=== PATIENT | male | born 1985 | race Caucasian/White ===

== ENCOUNTER 2021-04-21 07:46 | Emergency (ER) | payer MEDICAID ==
[2021-04-21] MEDS ORDERED: Sodium Chloride 0.9% 1,000 ML IV STA (08:17)
[2021-04-21] MEDS ORDERED: Sodium Chloride 0.9% 10 ML Syringe FLUSH PRN (08:17)
[2021-04-21] MEDS ORDERED: Ondansetron 4 MG/2 ML SDV IVPUSH ONE (08:17)
[2021-04-21] MEDS ORDERED: HYDROmorphone 1 MG/ML Syringe IVPUSH ONE (08:18)
--- NOTE | 2021-04-21 08:22 | EDM.PDOC ---
ED HPI GENERAL MEDICAL PROBLEM - General Chief Complaint: Abdominal Pain Stated Complaint: ABDOMINAL PAIN Time Seen by Provider: 04/21/21 08:10 Source of Information: Reports: Patient History Limitations: Reports: No Limitations - History of Present Illness INITIAL COMMENTS - FREE TEXT/NARRATIVE: The patient presents with right upper abdominal pain. This started this morning when he woke up. He has nausea with it. He also had some bloody stools. He went to bed feeling fine. He still has his gallbladder and appendix. He has no fever, chills, cough, chest pain, or shortness of breath. Onset: Sudden Duration: Hour(s): Location: Reports: Abdomen Quality: Reports: Sharp Severity: Severe Improves with: Reports: None Worsens with: Reports: None Associated Symptoms: Reports: Nausea/Vomiting. Denies: Chest Pain, Cough, Fever/Chills, Headaches, Shortness of Breath Right Abdomen Pain Score (Numeric/FACES): 8 - Related Data Allergies Allergy/AdvReac Type Severity Reaction Status Date / Time No Known Allergies Allergy Verified 04/21/21 08:02 Home Meds: Home Meds traMADol [Ultram] 50 - 100 mg PO Q6H PRN #20 tab 04/21/21 [Rx] Social & Family History - Tobacco Use Tobacco Use Status *Q: Current Every Day Tobacco User Years of Tobacco use: 10 Packs/Tins Daily: 1 - Caffeine Use Caffeine Use: Reports: None - Recreational Drug Use Recreational Drug Use: Yes Drug Use in Last 12 Months: Yes Recreational Drug Type: Reports: Marijuana/Hashish, Methamphetamine Recreational Drug Use Frequency: Daily ED ROS GENERAL - Review of Systems Review Of Systems: See Below Constitutional: Reports: No Symptoms HEENT: Reports: No Symptoms Respiratory: Reports: No Symptoms Cardiovascular: Reports: No Symptoms Endocrine: Reports: No Symptoms GI/Abdominal: Reports: Abdominal Pain, Bloody Stool, Nausea. Denies: Diarrhea, Vomiting ED EXAM, GI/ABD - Physical Exam Exam: See Below Exam Limited By: No Limitations General Appearance: Alert, No Apparent Distress Ears: Normal External Exam Nose: Normal Inspection Head: Atraumatic, Normocephalic Neck: Normal Inspection Respiratory/Chest: No Respiratory Distress, Lungs Clear, Normal Breath Sounds Cardiovascular: Regular Rate, Rhythm, No Edema, No Murmur GI/Abdominal Exam: Soft, No Organomegaly, No Mass, Tender (Moderate tenderness to the right upper abdomen) Course - Vital Signs Last Recorded V/S: Last Vital Signs Temp 98.4 F 04/21/21 08:03 Pulse 71 04/21/21 08:34 Resp 13 04/21/21 08:34 BP 170/108 H 04/21/21 08:34 Pulse Ox 100 04/21/21 08:34 - Orders/Labs/Meds Orders: Active Orders 24 hr Category Date Time Status Peripheral IV Care [RC] . DIRECTED Care 04/21/21 08:18 Active Abdomen Ltd [US] Stat Exams 04/21/21 08:17 Taken Sodium Chloride 0.9% [Saline Flush] Med 04/21/21 08:17 Active 10 ml FLUSH ASDIRECTED PRN ED Antiemetic Medication Reflex [OM.PC] Stat Oth 04/21/21 08:18 Ordered Peripheral IV Insertion Adult [OM.PC] Stat Oth 04/21/21 08:17 Ordered Medication Orders Sodium Chloride (Sodium Chloride 0.9% 10 Ml Syringe) 10 ml FLUSH ASDIRECTED PRN PRN Reason: Keep Vein Open Last Admin: 04/21/21 08:30 Dose: 10 ml Documented by: JUVENAL Labs: Laboratory Tests 04/21/21 04/21/21 04/21/21 Range/Units 08:05 08:05 09:44 WBC 7.73 (4.23-9.07) K/mm3 RBC 5.42 (4.63-6.08) M/mm3 Hgb 15.1 (13.7-17.5) gm/dl Hct 46.7 (40.1-51.0) % MCV 86.2 (79.0-92.2) fl MCH 27.9 (25.7-32.2) pg MCHC 32.3 (32.2-35.5) g/dl RDW Std Deviation 40.6 (35.1-43.9) fL Plt Count 193 (163-337) K/mm3 MPV 11.6 (9.4-12.3) fl Neut % (Auto) 64.0 (34.0-67.9) % Lymph % (Auto) 24.8 (21.8-53.1) % [place] % (Auto) 6.7 (5.3-12.2) % Eos % (Auto) 3.9 (0.8-7.0) Baso % (Auto) 0.3 (0.1-1.2) % Neut # (Auto) 4.95 (1.78-5.38) K/mm3 Lymph # (Auto) 1.92 (1.32-3.57) K/mm3 [place] # (Auto) 0.52 (0.30-0.82) K/mm3 Eos # (Auto) 0.30 (0.04-0.54) K/mm3 Baso # (Auto) 0.02 (0.01-0.08) K/mm3 Sodium 141 (136-145) mEq/L Potassium 3.7 (3.5-5.1) mEq/L Chloride 102 (98-107) mEq/L Carbon Dioxide 31 (21-32) mEq/L Anion Gap 11.7 (5-15) BUN 15 (7-18) mg/dL Creatinine 1.1 (0.7-1.3) mg/dL Est Cr Clr Drug Dosing 103.91 mL/min Estimated GFR (MDRD) > 60 (>60) mL/min BUN/Creatinine Ratio 13.6 L (14-18) Glucose 123 H (70-99) mg/dL Calcium 8.7 (8.5-10.1) mg/dL Total Bilirubin 0.3 (0.2-1.0) mg/dL AST 20 (15-37) U/L ALT 64 H (16-63) U/L Alkaline Phosphatase 70 (46-116) U/L Total Protein 7.3 (6.4-8.2) g/dl Albumin 4.0 (3.4-5.0) g/dl Globulin 3.3 gm/dL Albumin/Globulin Ratio 1.2 (1-2) Lipase 107 (73-393) U/L Urine Color Yellow (Yellow) Urine Appearance Clear (Clear) Urine pH 8.5 H (5.0-8.0) Ur Specific [place] 1.025 (1.005-1.030) Urine Protein Negative (Negative) Urine Glucose (UA) Negative (Negative) Urine Ketones Negative (Negative) Urine Occult Blood Negative (Negative) Urine Nitrite Negative (Negative) Urine Bilirubin Negative (Negative) Urine Urobilinogen 0.2 (0.2-1.0) Ur Leukocyte Esterase Negative (Negative) Urine RBC Not seen (0-5) /hpf Urine WBC Not seen (0-5) /hpf Ur Squamous Epith Cells 0-5 (0-5) /hpf Urine Bacteria Not seen (FEW) /hpf Urine Mucus Few (FEW) /hpf Meds: Medications Generic Name Dose Route Start Last Admin Trade Name Isrrael PRN Reason Stop Dose Admin Sodium Chloride 10 ml 04/21/21 08:17 04/21/21 08:30 Sodium Chloride 0.9% 10 Ml Syringe FLUSH 10 ml ASDIRECTED PRN Administration Keep Vein Open Discontinued Medications Generic Name Dose Route Start Last Admin Trade Name Isrrael PRN Reason Stop Dose Admin Hydromorphone HCl 1 mg 04/21/21 08:18 04/21/21 08:29 Hydromorphone 1 Mg/Ml Syringe IVPUSH 04/21/21 08:19 1 mg ONETIME ONE Administration Sodium Chloride 1,000 mls @ 1,000 mls/hr 04/21/21 08:17 04/21/21 08:30 Normal Saline IV 04/21/21 09:16 1,000 mls/hr .BOLUS STA Administration Ondansetron HCl 4 mg 04/21/21 08:17 04/21/21 08:30 Ondansetron 4 Mg/2 Ml Sdv IVPUSH 04/21/21 08:18 4 mg ONETIME ONE Administration - Re-Assessments/Exams Free Text/Narrative Re-Assessment/Exam: 04/21/21 08:22 I ordered an IV NS 1L bolus, zofran 4mg IV, dilaudid 1mg IV, labs, UA and an US of his abdomen to look at his gallbladder. 04/21/21 10:42 His CBC looks good. His ALT was elevated at 64. His lipase was normal. His UA shows no UTI or blood. The US shows cholelithiasis and gallbladder polyps. Mild right hydronephrosis. This is biliary colic from gall stones. I will have him avoid fried fatty foods and follow up with our surgeon Dr Richardson. Departure - Departure Time of Disposition: 10:45 Disposition: Home, Self-Care 01 Condition: Good Clinical Impression: Biliary colic Cholelithiasis Qualifiers: Cholelithiasis location: gallbladder Cholecystitis presence: without cholecystitis Biliary obstruction: without biliary obstruction Qualified Code(s): K80.20 - Calculus of gallbladder without cholecystitis without obstruction - Discharge Information *PRESCRIPTION DRUG MONITORING PROGRAM REVIEWED*: Not Applicable *COPY OF PRESCRIPTION DRUG MONITORING REPORT IN PATIENT LEVI: Not Applicable Prescriptions: traMADol [Ultram] 50 - 100 mg PO Q6H PRN #20 tab PRN Reason: Pain Referrals: PCP,None [Primary Care Provider] - Zackery Richardson MD [Physician] - 1 Week Forms: ED Department Discharge Additional Instructions: Drink plenty of fluids. Try to avoid fried, fatty foods. They will make your gallbladder contract. Take tylenol or motrin for pain. If that does not help, try the ultram. Follow up with Dr Richardson within a week. Please return if you are worse. Sepsis Event Note (ED) - Evaluation Sepsis Screening Result: No Definite Risk - Focused Exam Vital Signs: Vital Signs Temp Pulse Resp BP Pulse Ox 04/21/21 08:34 71 13 170/108 H 100 04/21/21 08:03 98.4 F 77 13 160/120 H 100 - My Orders Last 24 Hours: My Active Orders 04/21/21 08:17 Abdomen Ltd [US] Stat Sodium Chloride 0.9% [Saline Flush] 10 ml FLUSH ASDIRECTED PRN Peripheral IV Insertion Adult [OM.PC] Stat 04/21/21 08:18 Peripheral IV Care [RC] . DIRECTED ED Antiemetic Medication Reflex [OM.PC] Stat - Assessment/Plan Last 24 Hours: My Active Orders 04/21/21 08:17 Abdomen Ltd [US] Stat Sodium Chloride 0.9% [Saline Flush] 10 ml FLUSH ASDIRECTED PRN Peripheral IV Insertion Adult [OM.PC] Stat 04/21/21 08:18 Peripheral IV Care [RC] . DIRECTED ED Antiemetic Medication Reflex [OM.PC] Stat
--- NOTE | 2021-04-22 15:58 | US ---
Limited abdominal ultrasound: Multiple real-time images were obtained of the right upper abdomen. Several small gallstones and probably small gallbladder wall polyps are noted. No gallbladder wall thickening or biliary duct dilatation is seen. Liver shows no focal parenchymal abnormality. Pancreas is incompletely seen. Visualized portions of the pancreas show no discrete abnormality. Slightly prominent calyces are seen within the kidney. Right kidney is otherwise unremarkable. Right kidney has a length of 12.5 cm. Inferior vena cava is patent. Main portal vein shows normal hepatopedal flow. Impression: 1. Several small gallstones and gallbladder polyps are seen within the gallbladder. No gallbladder wall thickening or biliary duct dilatation is seen. 2. Slightly prominent calyces are seen within the kidney. Uncertain if these are artifact or represent a real finding. Please correlate if patient has right kidney symptoms. 3. No additional abnormality is appreciated. Diagnostic code #3 I agree with preliminary report from [facility], finalized on 0 04/21/21, 11:03 AM CDT, code 1
== END 2021-04-21 10:58 | disposition home or self-care (01) ==
LOC: JD.ED 07:46
DX: K80.70 Calculus of gallbladder and bile duct without cholecystitis without obstruction (principal); Z72.0 Tobacco use
CPT/HCPCS: 36415; 76705; 80053; 81001; 83690; 85025; 96374; 96375; 99284; J1170; J2405; J7030; 99283

== ENCOUNTER 2021-05-29 09:24 | Emergency (ER) | payer MEDICAID ==
[2021-05-29] MEDS ORDERED: Sodium Chloride 0.9% 10 ML Syringe FLUSH PRN (09:57)
[2021-05-29] MEDS ORDERED: Labetalol 100 MG/20 ML MDV IVPUSH ONE (09:57)
[2021-05-29] MEDS ORDERED: LORazepam 2 MG/ML SDV IVPUSH ONE (09:57)
--- NOTE | 2021-05-29 10:28 | CT ---
Head CT Technique: Multiple axial sections through the brain were obtained. Intravenous contrast was not utilized. Reconstructed coronal and sagittal images were obtained. Comparison: No prior intracranial imaging is available. Findings: Ventricles along with basal cisterns and sulci over the convexities are within normal limits for the patient's age. No abnormal parenchymal densities are seen. No evidence of intracranial hemorrhage is seen. No midline shift or mass-effect is seen. Bone window settings were reviewed. Visualized mastoid sinuses are clear. Mild mucosal thickening is seen scattered within the ethmoid sinuses and frontal sinuses. No air-fluid levels are seen within the visualized paranasal sinuses. No acute calvarial abnormality is appreciated. Impression: 1. Mild mucosal thickening within the ethmoid and frontal sinuses which most likely is chronic. 2. Nothing acute is otherwise seen on noncontrast head CT exam. Diagnostic code #2
[2021-05-29] MEDS ORDERED: Ketorolac 30 MG/ML SDV IVPUSH ONE (10:46)
[2021-05-29] MEDS ORDERED: Acetaminophen 325 MG Tab PO ONE (10:46)
--- NOTE | 2021-05-29 11:08 | EDM.PDOC ---
ED HPI GENERAL MEDICAL PROBLEM - General Chief Complaint: Headache Stated Complaint: HIGH BP/HEADACHE Time Seen by Provider: 05/29/21 09:48 Source of Information: Reports: Patient, RN Notes Reviewed - History of Present Illness INITIAL COMMENTS - FREE TEXT/NARRATIVE: 36 yr old male went to [facility] this AM after sudden onset of [place] this morning about 2 hrs ago. BP was high so sent here. Hx of Htn, did take his meds this morning. Under a lot of stress. Has not been recently ill. Right Headache Pain Score (Numeric/FACES): 9 - Related Data Allergies Allergy/AdvReac Type Severity Reaction Status Date / Time No Known Allergies Allergy Verified 05/29/21 09:37 Home Meds: Home Meds PARoxetine HCl [Paxil] 20 mg PO BEDTIME 05/29/21 [History] cloNIDine HCL [Clonidine HCl] 0.2 mg PO DAILY 05/29/21 [History] lisinopriL [Lisinopril] 20 mg PO DAILY 05/29/21 [History] Past Medical History HEENT History: Reports: Impaired Vision Cardiovascular History: Reports: Hypertension Respiratory History: Reports: None Gastrointestinal History: Reports: None Genitourinary History: Reports: None Musculoskeletal History: Reports: None Neurological History: Reports: None Psychiatric History: Reports: Anxiety Endocrine/Metabolic History: Reports: None Hematologic History: Reports: None Immunologic History: Reports: None Oncologic (Cancer) History: Reports: None - Infectious Disease History Infectious Disease History: Reports: None - Past Surgical History Head Surgeries/Procedures: Reports: None HEENT Surgical History: Reports: None Social & Family History - Family History Family Medical History: No Pertinent Family History - Tobacco Use Tobacco Use Status *Q: Current Every Day Tobacco User Years of Tobacco use: 20 Packs/Tins Daily: 2 - Caffeine Use Caffeine Use: Reports: Coffee - Recreational Drug Use Recreational Drug Use: Yes Drug Use in Last 12 Months: No Recreational Drug Type: Reports: Marijuana/Hashish, Methamphetamine Recreational Drug Use Frequency: Not Used In Over 1 Month ED ROS GENERAL - Review of Systems Review Of Systems: See Below Constitutional: Denies: Fever, Chills HEENT: Denies: Ear Pain, Sinus Problem, Throat Pain Respiratory: Denies: Shortness of Breath Cardiovascular: Denies: Chest Pain GI/Abdominal: Denies: Abdominal Pain, Nausea, Vomiting Musculoskeletal: Denies: Neck Pain, Back Pain Skin: Reports: No Symptoms Neurological: Reports: Headache. Denies: Numbness, Tingling, Trouble Speaking, Difficulty Walking, Weakness ED EXAM, NEURO - Physical Exam Exam: See Below General Appearance: Alert, Moderate Distress Eye Exam: Bilateral Eye: PERRL Throat/Mouth: Normal Inspection Head Exam: Atraumatic Neck: Supple Respiratory/Chest: No Respiratory Distress, Lungs Clear, Normal Breath Sounds Cardiovascular: Regular Rate, Rhythm GI/Abdominal: Non-Tender Neurological: Alert, No Motor/Sensory Deficits, Oriented x 3, Other (no drift, finger to nose testing normal) Skin Exam: Warm, Dry, Normal Color Course - Vital Signs Last Recorded V/S: Last Vital Signs Temp 97.0 F 05/29/21 09:41 Pulse 64 05/29/21 11:35 Resp 20 05/29/21 09:41 BP 137/75 05/29/21 11:35 Pulse Ox 99 05/29/21 09:41 - Orders/Labs/Meds Orders: Active Orders 24 hr Category Date Time Status Peripheral IV Insertion Adult [OM.PC] Stat Oth 05/29/21 09:57 Ordered Labs: Laboratory Tests 05/29/21 05/29/21 Range/Units 10:15 10:15 WBC 7.89 (4.23-9.07) K/mm3 RBC 5.52 (4.63-6.08) M/mm3 Hgb 15.4 (13.7-17.5) gm/dl Hct 46.9 (40.1-51.0) % MCV 85.0 (79.0-92.2) fl MCH 27.9 (25.7-32.2) pg MCHC 32.8 (32.2-35.5) g/dl RDW Std Deviation 42.2 (35.1-43.9) fL Plt Count 207 (163-337) K/mm3 MPV 11.0 (9.4-12.3) fl Neut % (Auto) 72.4 H (34.0-67.9) % Lymph % (Auto) 15.0 L (21.8-53.1) % [place] % (Auto) 7.9 (5.3-12.2) % Eos % (Auto) 4.2 (0.8-7.0) Baso % (Auto) 0.4 (0.1-1.2) % Neut # (Auto) 5.72 H (1.78-5.38) K/mm3 Lymph # (Auto) 1.18 L (1.32-3.57) K/mm3 [place] # (Auto) 0.62 (0.30-0.82) K/mm3 Eos # (Auto) 0.33 (0.04-0.54) K/mm3 Baso # (Auto) 0.03 (0.01-0.08) K/mm3 Sodium 143 (136-145) mEq/L Potassium 4.1 (3.5-5.1) mEq/L Chloride 107 (98-107) mEq/L Carbon Dioxide 25 (21-32) mEq/L Anion Gap 15.1 H (5-15) BUN 13 (7-18) mg/dL Creatinine 1.0 (0.7-1.3) mg/dL Est Cr Clr Drug Dosing 111.01 mL/min Estimated GFR (MDRD) > 60 (>60) mL/min BUN/Creatinine Ratio 13.0 L (14-18) Glucose 103 H (70-99) mg/dL Calcium 9.0 (8.5-10.1) mg/dL Total Bilirubin 0.4 (0.2-1.0) mg/dL AST 16 (15-37) U/L ALT 24 (16-63) U/L Alkaline Phosphatase 71 (46-116) U/L Total Protein 7.4 (6.4-8.2) g/dl Albumin 4.2 (3.4-5.0) g/dl Globulin 3.2 gm/dL Albumin/Globulin Ratio 1.3 (1-2) Meds: Medications Discontinued Medications Generic Name Dose Route Start Last Admin Trade Name Freq PRN Reason Stop Dose Admin Acetaminophen 975 mg 05/29/21 10:46 05/29/21 10:51 Acetaminophen 325 Mg Tab PO 05/29/21 10:47 975 mg NOW ONE Administration Ketorolac Tromethamine 30 mg 05/29/21 10:46 05/29/21 10:52 Ketorolac 30 Mg/Ml Sdv IVPUSH 05/29/21 10:47 30 mg ONETIME ONE Administration Labetalol HCl 20 mg 05/29/21 09:57 05/29/21 10:27 Labetalol 100 Mg/20 Ml Mdv IVPUSH 05/29/21 09:58 20 mg ONETIME ONE Administration Protocol Lorazepam 1 mg 05/29/21 09:57 05/29/21 10:25 Lorazepam 2 Mg/Ml Sdv IVPUSH 05/29/21 09:58 1 mg ONETIME ONE Administration Sodium Chloride 10 ml 05/29/21 09:57 05/29/21 10:31 Sodium Chloride 0.9% 10 Ml Syringe FLUSH 10 ml ASDIRECTED PRN Administration Keep Vein Open - Re-Assessments/Exams Free Text/Narrative Re-Assessment/Exam: 05/29/21 11:07 labs normal, head CT nl. Bp has come down after one dose labetalol and ativan 1 mg IV. Will give torodol 30 IV and pO tylenol. 05/29/21 11:33 Feeling a lot better, resting comfortably, BP down to 140/80. Departure - Departure Time of Disposition: 11:34 Disposition: Home, Self-Care 01 Condition: Fair Clinical Impression: Headache Qualifiers: Headache type: unspecified Headache chronicity pattern: acute headache Intractability: not intractable Qualified Code(s): R51.9 - Headache, unspecified Hypertension Qualifiers: Hypertension type: primary hypertension Qualified Code(s): I10 - Essential (primary) hypertension - Discharge Information Instructions: Hypertension, Adult, [id number] Referrals: PCP,None [Primary Care Provider] - Forms: ED Department Discharge Additional Instructions: Rest. You have been given sedating medication while here in the ED so no driving the remainder of today. Continue current medications as prescribed. Get a blood pressure unit and check your BP at home 2 to 3 times daily. Keep a record of that, bring that to the clinic for your next visit. Follow up with your regular medical provider in about 6 to 7 days, call for appointment. Return to ED as needed if symptoms worsening in any way. Sepsis Event Note (ED) - Evaluation Sepsis Screening Result: No Definite Risk - Focused Exam Vital Signs: Vital Signs Temp Pulse Resp BP Pulse Ox 05/29/21 11:35 64 137/75 05/29/21 09:41 97.0 F 70 20 187/121 H 99 - My Orders Last 24 Hours: My Active Orders 05/29/21 09:57 Peripheral IV Insertion Adult [OM.PC] Stat - Assessment/Plan Last 24 Hours: My Active Orders 05/29/21 09:57 Peripheral IV Insertion Adult [OM.PC] Stat
== END 2021-05-29 11:47 | disposition home or self-care (01) ==
LOC: JD.ED 09:24
DX: R51.9 Headache, unspecified (principal); I10 Essential (primary) hypertension; Z79.899 Other long term (current) drug therapy; Z72.0 Tobacco use
CPT/HCPCS: 36415; 70450; 80053; 85025; 96374; 96375; 99284; A9270; J1885; J2060; J3490

== ENCOUNTER 2021-05-30 19:20 | Emergency (ER) | payer MEDICAID ==
[2021-05-30] MEDS ORDERED: Labetalol 100 MG/20 ML MDV IVPUSH ONE ×2 (19:56→21:18)
[2021-05-30] MEDS ORDERED: Acetaminophen 325 MG Tab PO ONE (19:56)
[2021-05-30] MEDS ORDERED: Ketorolac 30 MG/ML SDV IVPUSH ONE (19:56)
[2021-05-30] MEDS ORDERED: LORazepam 2 MG/ML SDV IVPUSH ONE (19:56)
--- NOTE | 2021-05-30 20:38 | CR ---
Chest: 2 views of the chest were obtained. Comparison: No prior chest imaging is available. Two nodular densities are seen within the right chest which are believed to represent callus within healed rib fractures involving the seventh and eighth ribs. There is pleural thickening felt to represent an additional healing fracture within the eighth rib. Heart size at the upper limits of normal. Upper mediastinum is normal. Lungs show no acute parenchymal change. No acute osseous abnormality is appreciated. Impression: 1. Findings as noted above. 2. Nothing acute is seen. Diagnostic code #2
--- NOTE | 2021-05-30 20:48 | EDM.PDOC ---
ED HPI GENERAL MEDICAL PROBLEM - General Chief Complaint: Chest Pain Stated Complaint: CHEST PAIN Time Seen by Provider: 05/30/21 19:25 Source of Information: Reports: Patient, RN Notes Reviewed History Limitations: Reports: No Limitations - History of Present Illness INITIAL COMMENTS - FREE TEXT/NARRATIVE: Patient is a 36-year-old male returning to the emergency department with complaints of headache, high blood pressure, and right-sided chest "tingling and pressure ". Patient had very similar symptoms yesterday and was seen in this emergency department. Symptoms resolved after treatment. He reports that he did take his blood pressure medications in the evening yesterday, therefore he has not taken them thus far today. He had recurrence of headache about [address] scan of the head was completed in ER yesterday and found to be normal. He has not taken anything for pain at home. Denies any shortness of breath. Reports that he is sensitive to light. He has been under increased stress. Reports he has not been sleeping well and recently stopped methamphetamine use. He does not have a primary care provider locally, however has plans to establish care with Mary Dsouza NP. Headache Pain Score (Numeric/FACES): 5 - Related Data Allergies Allergy/AdvReac Type Severity Reaction Status Date / Time No Known Allergies Allergy Verified 05/30/21 19:32 Home Meds: Home Meds PARoxetine HCl [Paxil] 20 mg PO BEDTIME 05/29/21 [History] cloNIDine HCL [Clonidine HCl] 0.2 mg PO DAILY 05/29/21 [History] lisinopriL [Lisinopril] 20 mg PO DAILY 05/29/21 [History] LORazepam [Ativan] 1 mg PO TID PRN #15 tab 05/30/21 [Rx] Past Medical History HEENT History: Reports: Impaired Vision Cardiovascular History: Reports: Hypertension Respiratory History: Reports: None Gastrointestinal History: Reports: None Other Gastrointestinal History: gallstones Genitourinary History: Reports: None Musculoskeletal History: Reports: None Neurological History: Reports: None Psychiatric History: Reports: Anxiety, Panic Attack Endocrine/Metabolic History: Reports: Obesity/BMI 30+ Hematologic History: Reports: None Immunologic History: Reports: None Oncologic (Cancer) History: Reports: None - Infectious Disease History Infectious Disease History: Reports: Chicken Pox - Past Surgical History Head Surgeries/Procedures: Reports: None HEENT Surgical History: Reports: None Social & Family History - Family History Family Medical History: No Pertinent Family History - Tobacco Use Tobacco Use Status *Q: Current Every Day Tobacco User Years of Tobacco use: 20 Packs/Tins Daily: 2 - Caffeine Use Caffeine Use: Reports: Coffee - Recreational Drug Use Recreational Drug Use: No ED ROS GENERAL - Review of Systems Review Of Systems: Comprehensive ROS is negative, except as noted in HPI. ED EXAM, GENERAL - Physical Exam Exam: See Below Exam Limited By: No Limitations General Appearance: Alert, WD/WN, No Apparent Distress Respiratory/Chest: No Respiratory Distress, Lungs Clear, Normal Breath Sounds, No Accessory Muscle Use, Other (right chest wall tenderness) Cardiovascular: Normal Peripheral Pulses, Regular Rate, Rhythm, No Edema, No Gallop, No JVD, No Murmur, No Rub GI/Abdominal: Normal Bowel Sounds, Soft, Non-Tender, No Organomegaly, No Distention, No Abnormal Bruit, No Mass Neurological: Alert, Oriented, CN II-XII Intact, Normal Cognition, Normal Gait, Normal Reflexes, No Motor/Sensory Deficits Psychiatric: Normal Affect, Normal Mood Skin Exam: Warm, Dry, Intact, Normal Color, No Rash #1 Interpretation EKG Date: 05/30/21 Time: 19:25 Rhythm: NSR Rate (Beats/Min): 69 [place]: Normal P-Wave: Present QRS: Normal ST-T: Normal QT: Normal Course - Vital Signs Last Recorded V/S: Last Vital Signs Temp 97 F 05/30/21 19:28 Pulse 65 05/30/21 20:45 Resp 22 H 05/30/21 19:28 BP 142/97 H 05/30/21 20:45 Pulse Ox 96 05/30/21 20:45 - Orders/Labs/Meds Labs: Laboratory Tests 05/30/21 05/30/21 Range/Units 19:49 19:49 WBC 6.05 (4.23-9.07) K/mm3 RBC 5.34 (4.63-6.08) M/mm3 Hgb 15.0 (13.7-17.5) gm/dl Hct 46.1 (40.1-51.0) % MCV 86.3 (79.0-92.2) fl MCH 28.1 (25.7-32.2) pg MCHC 32.5 (32.2-35.5) g/dl RDW Std Deviation 42.8 (35.1-43.9) fL Plt Count 209 (163-337) K/mm3 MPV 11.6 (9.4-12.3) fl Neut % (Auto) 55.0 (34.0-67.9) % Lymph % (Auto) 28.1 (21.8-53.1) % [place] % (Auto) 9.4 (5.3-12.2) % Eos % (Auto) 6.8 (0.8-7.0) Baso % (Auto) 0.5 (0.1-1.2) % Neut # (Auto) 3.33 (1.78-5.38) K/mm3 Lymph # (Auto) 1.70 (1.32-3.57) K/mm3 [place] # (Auto) 0.57 (0.30-0.82) K/mm3 Eos # (Auto) 0.41 (0.04-0.54) K/mm3 Baso # (Auto) 0.03 (0.01-0.08) K/mm3 Sodium 146 H (136-145) mEq/L Potassium 4.3 (3.5-5.1) mEq/L Chloride 107 (98-107) mEq/L Carbon Dioxide 30 (21-32) mEq/L Anion Gap 13.3 (5-15) BUN 13 (7-18) mg/dL Creatinine 1.1 (0.7-1.3) mg/dL Est Cr Clr Drug Dosing 100.92 mL/min Estimated GFR (MDRD) > 60 (>60) mL/min BUN/Creatinine Ratio 11.8 L (14-18) Glucose 87 (70-99) mg/dL Calcium 8.6 (8.5-10.1) mg/dL Total Bilirubin 0.4 (0.2-1.0) mg/dL AST 14 L (15-37) U/L ALT 28 (16-63) U/L Alkaline Phosphatase 66 (46-116) U/L Troponin I < 0.017 (0.00-0.056) ng/mL Total Protein 6.9 (6.4-8.2) g/dl Albumin 4.1 (3.4-5.0) g/dl Globulin 2.8 gm/dL Albumin/Globulin Ratio 1.5 (1-2) Meds: Medications Discontinued Medications Generic Name Dose Route Start Last Admin Trade Name Isrrael PRN Reason Stop Dose Admin Acetaminophen 975 mg 05/30/21 19:56 05/30/21 20:11 Acetaminophen 325 Mg Tab PO 05/30/21 19:57 975 mg NOW ONE Administration Ketorolac Tromethamine 30 mg 05/30/21 19:56 05/30/21 20:13 Ketorolac 30 Mg/Ml Sdv IVPUSH 05/30/21 19:57 30 mg ONETIME ONE Administration Labetalol HCl 10 mg 05/30/21 19:56 05/30/21 20:13 Labetalol 100 Mg/20 Ml Mdv IVPUSH 05/30/21 19:57 10 mg ONETIME ONE Administration Protocol Labetalol HCl 10 mg 05/30/21 21:18 05/30/21 21:30 Labetalol 100 Mg/20 Ml Mdv IVPUSH 05/30/21 21:19 2 ml ONETIME ONE Administration Protocol Lorazepam 1 mg 05/30/21 19:56 05/30/21 20:13 Lorazepam 2 Mg/Ml Sdv IVPUSH 05/30/21 19:57 1 mg ONETIME ONE Administration - Re-Assessments/Exams Free Text/Narrative Re-Assessment/Exam: 05/30/21 21:20 Patient is feeling much better. Blood pressure had improved to 142/97, however last reading was 163/110. I will give an additional 10 mg of labetalol and patient will be discharged home. Recommend that he increase his lisinopril to 30 mg daily and that he take his blood pressure medications at alternating times. Recommend lisinopril in the evening before bed and clonidine in the morning. I will send also prescription for Ativan 1 mg up to 3 times daily as needed for anxiety. He should establish care with a primary care provider and follow-up at the next available visit. He is in agreement with this plan. Discharge instructions as documented. Departure - Departure Time of Disposition: 21:20 Disposition: Home, Self-Care 01 Condition: Good Clinical Impression: Anxiety Hypertension Qualifiers: Hypertension type: primary hypertension Qualified Code(s): I10 - Essential (primary) hypertension Headache Qualifiers: Headache type: unspecified Headache chronicity pattern: acute headache Intractability: not intractable Qualified Code(s): R51.9 - Headache, unspecified Prescriptions: LORazepam [Ativan] 1 mg PO TID PRN #15 tab PRN Reason: Anxiety Instructions: Hypertension, Adult, [id number], General Headache Without Cause, [id number] Referrals: Mary Dsouza NP [Ordering Only Provider] - Forms: ED Department Discharge Additional Instructions: You were seen in the emergency department today for recurrence of headache, right-sided chest discomfort, and high blood pressure. Work-up included blood work, EKG of your heart, and chest x-ray. Results of work were found to be normal. While in the ER, you received pain medications, blood pressure medications, and Ativan to help you relax. This did bring your blood pressure down. Recommend that you increase your lisinopril to 30 mg daily. You may take 1-1/2 tabs of the 20 mg pills that you have at home currently. Take your lisinopril in the evening before bed and your clonidine in the morning. This will help give you better coverage of your blood pressure over 24 period. Have been provided prescription for Ativan. Use this up to 3 times daily as needed for anxiety. Recommend that you establish care with a primary care provider. Referral has been sent to Mary Dsouza NP. Check your blood pressure a couple times daily and keep a log of this to take to your first appointment with you. If you should experience any new or worsening symptoms, please not hesitate to return to the emergency department for reevaluation. Sepsis Event Note (ED) - Evaluation Sepsis Screening Result: No Definite Risk
== END 2021-05-30 21:37 | disposition home or self-care (01) ==
LOC: JD.ED 19:20
DX: R51.9 Headache, unspecified (principal); F41.9 Anxiety disorder, unspecified; I10 Essential (primary) hypertension; E66.9 Obesity, unspecified; Z68.35 Body mass index [BMI] 35.0-35.9, adult; Z72.0 Tobacco use; Z79.899 Other long term (current) drug therapy
CPT/HCPCS: 36415; 71046; 80053; 84484; 85025; 93005; 96374; 96375; 96376; 99284; A9270; J1885; J2060; J3490

== ENCOUNTER 2024-02-28 20:22 | Emergency (ER) | payer BC, MEDICAID ==
[2024-02-28 20:53] LABS: BASOPHILS PERCENT AUTO 0.5 % (0.0-1.0); EOSINOPHILS ABSOLUTE AUTO 0.3 K/mm3 (0.0-0.4); EOSINOPHILS PERCENT AUTO 8.2 % (0.0-6.0); HEMATOCRIT 41.1 % (42.0-52.0); HEMOGLOBIN 13.8 gm/dl (14.0-18.0); IMMATURE GRAN ABSOLUTE AUTO 0.01 K/mm3 (0.00-0.05); IMMATURE GRAN PERCENT AUTO 0.2 % (0.0-0.4); LYMPHOCYTES ABSOLUTE AUTO 1.2 K/mm3 (1.0-4.8); MEAN CORPUSCULAR HEMOGLOBIN 28.7 pg (28.0-32.0); MEAN CORPUSCULAR HGB CONC 33.6 g/dl (32.0-36.0); MEAN CORPUSCULAR VOLUME 85.4 fl (83.0-99.0); MEAN PLATELET VOLUME 11.1 fl (9.4-12.4); MONOCYTES ABSOLUTE AUTO 0.6 K/mm3 (0.0-0.8); MONOCYTES PERCENT AUTO 13.3 % (0.0-8.0); NEUTROPHILS ABSOLUTE AUTO 2.1 K/mm3 (1.8-7.7); NEUTROPHILS PERCENT AUTO 49.8 % (41.0-71.0); PLATELET COUNT,PLT 135 K/mm3 (150-400); RED BLOOD CELL COUNT 4.81 M/mm3 (4.52-5.90); WHITE BLOOD CELL COUNT,WBC 4.15 K/mm3 (3.9-11.3)
[2024-02-28 21:09] LABS: PROTHROMBIN TIME 10.7 SECONDS (9.7-12.0)
[2024-02-28 21:11] LABS: PTT,PARTIAL THROMBOPLSTIN TIME 27.9 SECONDS (21.7-31.4)
[2024-02-28 21:17] LABS: A/G RATIO 1.2 (1-2); ALBUMIN 3.7 g/dl (3.4-5.0); ANION GAP 12.9 (5-15); BILIRUBIN TOTAL 0.3 mg/dL (0.2-1.0); BUN/CREATININE RATIO 10.8 (14-18); CALCIUM 8.4 mg/dL (8.5-10.1); CREATININE 1.3 mg/dL (0.7-1.3); EST CRCL DRUG DOSING (CG) 86.22 mL/min; MAGNESIUM 1.7 mg/dL (1.8-2.4); POTASSIUM,K 3.9 mEq/L (3.5-5.1); PROTEIN TOTAL,TP 6.7 g/dl (6.4-8.2)
[2024-02-28] MEDS: Oxymetazoline 0.05% Nasal Spray 30 ML Bottle NAS ONE (21:22)
[2024-02-28] MEDS: hydrALAZINE 20 MG/ML SDV IVPUSH ONE (21:24)
[2024-02-28 22:25] LABS: APPEARANCE,URINE CLEAR (Clear); BILIRUBIN,URINE NEGATIVE (Negative); COLOR,URINE YELLOW (Yellow); GLUCOSE,URINE NEGATIVE (Negative); KETONES,URINE NEGATIVE (Negative); LEUKOCYTE ESTERASE,URINE NEGATIVE (Negative); NITRITE,URINE NEGATIVE (Negative); OCCULT BLOOD,URINE NEGATIVE (Negative); PROTEIN,URINE NEGATIVE (Negative)
[2024-02-28] MEDS ORDERED: Magnesium Sulfate (4.06 MEQ/ML) 5 GM/10 ML SDV IV STA (22:34)
[2024-02-28] MEDS: Acetaminophen 325 MG Tab PO ONE (22:46)
[2024-02-28] MEDS: Magnesium Oxide 400 MG Tab PO ONE (22:46)
== END 2024-02-29 00:20 | disposition home or self-care (01) ==
LOC: JD.ED 20:22
DX: R04.0 Epistaxis (principal); I16.0 Hypertensive urgency; I10 Essential (primary) hypertension; E66.9 Obesity, unspecified; Z87.891 Personal history of nicotine dependence; Z79.899 Other long term (current) drug therapy
CPT/HCPCS: 36415; 70450; 80053; 81003; 83735; 84484; 85025; 85610; 85730; 96365; 96375; 99284; A9270; J0360; J3475

== ENCOUNTER 2024-02-29 21:22 | Emergency (ER) | payer BC, MEDICAID ==
[2024-02-29] MEDS: Oxymetazoline 0.05% Nasal Spray 30 ML Bottle NAS ONE (22:51)
[2024-02-29] MEDS: Lisinopril 20 MG Tab PO STA (22:51)
[2024-03-01] MEDS: cloNIDine 0.1 MG Tab PO ONE (00:44)
== END 2024-03-01 01:35 | disposition home or self-care (01) ==
LOC: JD.ED 21:22
DX: R04.0 Epistaxis (principal); I10 Essential (primary) hypertension; E66.9 Obesity, unspecified; Z68.33 Body mass index [BMI] 33.0-33.9, adult; Z79.899 Other long term (current) drug therapy
CPT/HCPCS: 99283; A9270-GY; C9046

== ENCOUNTER 2024-05-01 19:55 | Emergency (ER) | payer MEDICAID ==
[2024-05-01] MEDS: valACYclovir 500 MG Tab PO ONE (20:55)
[2024-05-01] MEDS: Lisinopril 10 MG Tab PO ONE (20:56)
[2024-05-01] MEDS: cloNIDine 0.1 MG Tab PO ONE (20:56)
[2024-05-01] MEDS: LORazepam 1 MG Tab PO ONE (20:56)
[2024-05-01] MEDS: Doxycycline Monohydrate 100 MG Cap PO ONE (21:49)
== END 2024-05-01 21:53 | disposition home or self-care (01) ==
LOC: JD.ED 19:55
DX: N34.1 Nonspecific urethritis (principal); B00.9 Herpesviral infection, unspecified; I10 Essential (primary) hypertension; F41.9 Anxiety disorder, unspecified; F17.210 Nicotine dependence, cigarettes, uncomplicated; Z79.899 Other long term (current) drug therapy; Z86.16 Personal history of COVID-19
CPT/HCPCS: 99283; A9270

== ENCOUNTER 2024-09-05 00:34 | Emergency (ER) | payer SELFPAY ==
[2024-09-05] MEDS: Acetaminophen/oxyCODONE 325-5 MG Tab PO ONE (01:08)
[2024-09-05] MEDS: Ondansetron 4 MG Tab.DIS PO ONE (01:10)
[2024-09-05] MEDS: cloNIDine 0.1 MG Tab PO ONE ×2 (01:10→01:21)
[2024-09-05] MEDS: Levofloxacin 500 MG Tab PO ONE (01:36)
== END 2024-09-05 01:36 | disposition home or self-care (01) ==
LOC: JD.ED 00:34
DX: N45.3 Epididymo-orchitis (principal); I10 Essential (primary) hypertension; J45.909 Unspecified asthma, uncomplicated; E66.9 Obesity, unspecified; Z86.16 Personal history of COVID-19; Z79.899 Other long term (current) drug therapy
CPT/HCPCS: 99283; A9270; 99284

== ENCOUNTER 2025-01-20 14:25 | Emergency (ER) | payer MEDICAID ==
[2025-01-20] MEDS: Ketorolac 30 MG/ML SDV IVPUSH ONE (17:15)
== END 2025-01-20 16:23 | disposition home or self-care (01) ==
LOC: JD.ED 14:25
DX: S70.02XA Contusion of left hip, initial encounter (principal); I10 Essential (primary) hypertension; J45.909 Unspecified asthma, uncomplicated; E66.9 Obesity, unspecified; Z86.16 Personal history of COVID-19; Z68.32 Body mass index [BMI] 32.0-32.9, adult; V86.59XA Driver of other special all-terrain or other off-road motor vehicle injured in nontraffic accident, initial encounter
CPT/HCPCS: 73502-26-LT; 73502-LT; 99283

== ENCOUNTER 2025-07-19 07:57 | Emergency (ER) | payer MEDICAID, OTHER ==
[2025-07-19] MEDS: Sodium Chloride 0.9% 10 ML Syringe FLUSH PRN (08:34)
[2025-07-19] MEDS: Ketorolac 30 MG/ML SDV IVPUSH ONE (08:34)
[2025-07-19] MEDS: diphenhydrAMINE 50 MG/ML SDV IVPUSH ONE (08:34)
[2025-07-19 08:45] LABS: BASOPHILS ABSOLUTE AUTO 0.1 K/mm3 (0.0-0.2); BASOPHILS PERCENT AUTO 0.8 % (0.0-1.0); EOSINOPHILS ABSOLUTE AUTO 0.3 K/mm3 (0.0-0.4); EOSINOPHILS PERCENT AUTO 4.3 % (0.0-6.0); IMMATURE GRAN ABSOLUTE AUTO 0.05 K/mm3 (0.00-0.05); IMMATURE GRAN PERCENT AUTO 0.7 % (0.0-0.4); LYMPHOCYTES ABSOLUTE AUTO 1.8 K/mm3 (1.0-4.8); LYMPHOCYTES PERCENT AUTO 24.8 % (24.0-44.0); MEAN PLATELET VOLUME 11.1 fl (9.4-12.4); MONOCYTES ABSOLUTE AUTO 0.6 K/mm3 (0.0-0.8); MONOCYTES PERCENT AUTO 8.4 % (0.0-8.0); NEUTROPHILS ABSOLUTE AUTO 4.3 K/mm3 (1.8-7.7); NEUTROPHILS PERCENT AUTO 61.0 % (41.0-71.0); NRBC ABSOLUTE 0.00 (0.00-0.02); NRBC PERCENT 0.0 % (0.0-0.2); PLATELET COUNT,PLT 239 K/mm3 (150-400); RED BLOOD CELL COUNT 5.48 M/mm3 (4.52-5.90); WHITE BLOOD CELL COUNT,WBC 7.13 K/mm3 (3.9-11.3)
[2025-07-19 09:01] LABS: A/G RATIO 1.3 (1-2); ALANINE AMINOTRANSFERASE,ALT 53.0 U/L (16-63); ASPARTATE AMNIOTRANSFERASE,AST 33.0 U/L (15-37); BILIRUBIN TOTAL 0.4 mg/dL (0.2-1.0); BLOOD UREA NITROGEN,BUN 18.0 mg/dL (7-18); CARBON DIOXIDE,CO2 33.0 mEq/L (21-32); CHLORIDE,CL 104.0 mEq/L (98-107); CREATININE 1.2 mg/dL (0.7-1.3); EST CRCL DRUG DOSING (CG) 88.92 mL/min; ESTIMATED GFR 78.0 mL/min (>60); GLUCOSE RANDOM 85.0 mg/dL (70-99); POTASSIUM,K 4.5 mEq/L (3.5-5.1); PROTEIN TOTAL,TP 7.2 g/dl (6.4-8.2); SODIUM,NA 144.0 mEq/L (136-145); TROPONIN I HIGH SENSITIVITY 17.0 pg/mL (<=76)
== END 2025-07-19 11:00 | disposition home or self-care (01) ==
LOC: JD.ED 07:57
DX: R07.89 Other chest pain (principal); R51.9 Headache, unspecified; I10 Essential (primary) hypertension; J45.909 Unspecified asthma, uncomplicated; E66.9 Obesity, unspecified; Z68.31 Body mass index [BMI] 31.0-31.9, adult; Z86.16 Personal history of COVID-19; Z79.899 Other long term (current) drug therapy
CPT/HCPCS: 36415; 71045; 80053; 83735; 84484; 85025; 93005; 96374; 96375; 99285; J1200; J1885; J2765; 93010; 99284

== ENCOUNTER 2025-08-02 12:46 | Emergency (ER) | payer MEDICAID | END 2025-08-02 13:45 | disposition left against medical advice (07) | LOC: JD.ED 12:46 | DX: F41.9 Anxiety disorder, unspecified (principal); I10 Essential (primary) hypertension; J45.909 Unspecified asthma, uncomplicated; E66.9 Obesity, unspecified; Z79.899 Other long term (current) drug therapy; Z86.16 Personal history of COVID-19 | CPT/HCPCS: 99283; 99284 ==

== ENCOUNTER 2025-08-04 11:11 | Emergency (ER) | payer MEDICAID ==
[2025-08-04 11:53] LABS: BASOPHILS ABSOLUTE AUTO 0.0 K/mm3 (0.0-0.2); BASOPHILS PERCENT AUTO 0.3 % (0.0-1.0); EOSINOPHILS ABSOLUTE AUTO 0.1 K/mm3 (0.0-0.4); EOSINOPHILS PERCENT AUTO 2.1 % (0.0-6.0); IMMATURE GRAN ABSOLUTE AUTO 0.02 K/mm3 (0.00-0.05); IMMATURE GRAN PERCENT AUTO 0.3 % (0.0-0.4); LYMPHOCYTES ABSOLUTE AUTO 1.5 K/mm3 (1.0-4.8); LYMPHOCYTES PERCENT AUTO 22.6 % (24.0-44.0); MEAN PLATELET VOLUME 10.9 fl (9.4-12.4); MONOCYTES ABSOLUTE AUTO 0.4 K/mm3 (0.0-0.8); MONOCYTES PERCENT AUTO 6.2 % (0.0-8.0); NEUTROPHILS ABSOLUTE AUTO 4.7 K/mm3 (1.8-7.7); NEUTROPHILS PERCENT AUTO 68.5 % (41.0-71.0); NRBC ABSOLUTE 0.00 (0.00-0.02); NRBC PERCENT 0.0 % (0.0-0.2); PLATELET COUNT,PLT 239 K/mm3 (150-400); RED BLOOD CELL COUNT 5.07 M/mm3 (4.52-5.90); WHITE BLOOD CELL COUNT,WBC 6.78 K/mm3 (3.9-11.3)
[2025-08-04 12:15] LABS: A/G RATIO 1.2 (1-2); ALANINE AMINOTRANSFERASE,ALT 60.0 U/L (16-63); ASPARTATE AMNIOTRANSFERASE,AST 47.0 U/L (15-37); BILIRUBIN TOTAL 0.5 mg/dL (0.2-1.0); BLOOD UREA NITROGEN,BUN 23.0 mg/dL (7-18); CARBON DIOXIDE,CO2 26.0 mEq/L (21-32); CHLORIDE,CL 106.0 mEq/L (98-107); CREATININE 1.4 mg/dL (0.7-1.3); EST CRCL DRUG DOSING (CG) 76.21 mL/min; ESTIMATED GFR 65.0 mL/min (>60); GLUCOSE RANDOM 104.0 mg/dL (70-99); POTASSIUM,K 4.5 mEq/L (3.5-5.1); PROTEIN TOTAL,TP 7.3 g/dl (6.4-8.2); SODIUM,NA 141.0 mEq/L (136-145); TROPONIN I HIGH SENSITIVITY 10.0 pg/mL (<=76)
== END 2025-08-04 13:20 | disposition home or self-care (01) ==
LOC: JD.ED 11:11
DX: F41.9 Anxiety disorder, unspecified (principal); I10 Essential (primary) hypertension; E66.9 Obesity, unspecified; Z79.899 Other long term (current) drug therapy
CPT/HCPCS: 36415; 71046; 80053; 84484; 85025; 93005; 99285; A9270

== ENCOUNTER 2025-08-08 08:16 | Emergency (ER) | payer MEDICAID ==
[2025-08-08] MEDS ORDERED: Sodium Chloride 0.9% 10 ML Syringe FLUSH PRN (08:32)
[2025-08-08 08:50] LABS: BASOPHILS ABSOLUTE AUTO 0.0 K/mm3 (0.0-0.2); BASOPHILS PERCENT AUTO 0.4 % (0.0-1.0); EOSINOPHILS ABSOLUTE AUTO 0.2 K/mm3 (0.0-0.4); EOSINOPHILS PERCENT AUTO 2.3 % (0.0-6.0); IMMATURE GRAN ABSOLUTE AUTO 0.01 K/mm3 (0.00-0.05); IMMATURE GRAN PERCENT AUTO 0.1 % (0.0-0.4); LYMPHOCYTES ABSOLUTE AUTO 1.0 K/mm3 (1.0-4.8); LYMPHOCYTES PERCENT AUTO 15.0 % (24.0-44.0); MEAN PLATELET VOLUME 10.5 fl (9.4-12.4); MONOCYTES ABSOLUTE AUTO 0.5 K/mm3 (0.0-0.8); MONOCYTES PERCENT AUTO 6.6 % (0.0-8.0); NEUTROPHILS ABSOLUTE AUTO 5.2 K/mm3 (1.8-7.7); NEUTROPHILS PERCENT AUTO 75.6 % (41.0-71.0); NRBC ABSOLUTE 0.00 (0.00-0.02); NRBC PERCENT 0.0 % (0.0-0.2); PLATELET COUNT,PLT 232 K/mm3 (150-400); RED BLOOD CELL COUNT 5.28 M/mm3 (4.52-5.90); WHITE BLOOD CELL COUNT,WBC 6.92 K/mm3 (3.9-11.3)
[2025-08-08] MEDS: Alum Hydrox/Mag Hydrox/Simeth 30 ML, Lidocaine 2% 15 ML PO ONE (09:08)
[2025-08-08 09:12] LABS: A/G RATIO 1.0 (1-2); ALANINE AMINOTRANSFERASE,ALT 34.0 U/L (16-63); ASPARTATE AMNIOTRANSFERASE,AST 14.0 U/L (15-37); BILIRUBIN TOTAL 0.5 mg/dL (0.2-1.0); BLOOD UREA NITROGEN,BUN 17.0 mg/dL (7-18); CARBON DIOXIDE,CO2 26.0 mEq/L (21-32); CHLORIDE,CL 105.0 mEq/L (98-107); CREATININE 1.1 mg/dL (0.7-1.3); EST CRCL DRUG DOSING (CG) 97.0 mL/min; ESTIMATED GFR 86.0 mL/min (>60); GLUCOSE RANDOM 104.0 mg/dL (70-99); POTASSIUM,K 4.2 mEq/L (3.5-5.1); PROTEIN TOTAL,TP 7.4 g/dl (6.4-8.2); SODIUM,NA 142.0 mEq/L (136-145); TROPONIN I HIGH SENSITIVITY 8.0 pg/mL (<=76)
== END 2025-08-08 11:23 | disposition home or self-care (01) ==
LOC: JD.ED 08:16
DX: R07.9 Chest pain, unspecified (principal); I10 Essential (primary) hypertension; E66.9 Obesity, unspecified; Z79.899 Other long term (current) drug therapy
CPT/HCPCS: 36415; 71045; 80053; 83690; 84484; 85025; 93005; 99285; A9270; J3490